=== PATIENT | male | born 1950 | race Caucasian/White ===

== ENCOUNTER → 2017-05-21 | Outpatient (CLI) | payer MEDICARE, OTHER ==
--- NOTE | ~2017-05-21 | NDGEN ---
PATIENT'S NAME: RISHABH ALLEN [facility] AGE: 66 Y [address] ROOM: [place] [id number] LOCATION: [facility] ADMIT DATE: 05/21/2017 [facility] DISCHARGE DATE: FAMILY PHYSICIAN: Dann Menjivar MD ATTENDING PHYSICIAN: Dann Menjivar PROCEDURE: ELECTROENCEPHALOGRAM DATE OF PROCEDURE: 05/21/2017 TEST: TECH: CLINICAL DIAGNOSIS: DURATION OF EE minutes. REASON FOR EEG: Mental status changes. CLINICAL HISTORY: The patient is a 66-year-old male with history of diabetes and stroke who was not himself when he first woke up, he had increased agitation and some slow speech and he became less responsive and would not follow commands, hence he was brought in for evaluation. EEG FINDINGS: The patient was awake for about 30% of the EEG, asleep for most of the EEG. During the awake portions of EEG up to 8 hertz background is seen in the posterior head regions which is symmetrical and somewhat disorganized at times, however, reactive to external stimuli. Activation procedures included photic stimulation between 3-30 hertz, which did not show any abnormalities. During the sleep phase, symmetrical sleep spindles were seen in the frontocentral region with 14 hertz frequencies. CLASSIFICATION: Normal, awake, asleep, 10/20 scalp electrodes. IMPRESSION: This EEG is mostly within normal limits. No epileptiform discharges or EEG seizures were seen during this recording. MD KENNETH RAM/yanet /[id number] dtt: 05/30/17 0634 , LUZMA ASHLYE dtd: 05/22/17 0811
== END | disposition disaster alternative care site (69) ==
LOC: GNEU 05-18 13:00
DX: R41.82 Altered mental status, unspecified (principal)